=== PATIENT | male | born 1965 | race Caucasian/White ===

== ENCOUNTER 2017-09-08 09:40 | Emergency (ER) | payer MEDICAID, OTHER ==
[~2017-09-08] VITALS: Ht 177.8 cm; Wt 117.2 kg
[2017-09-08 09:46] VITALS: BP 124/87
[2017-09-08] MEDS ORDERED: KETOROLAC 30 MG/1 ML ONE (10:15)
[2017-09-08] MEDS ORDERED: BENAZEPRIL (10:30)
[2017-09-08] MEDS ORDERED: METF500T5 PO (10:30)
[2017-09-08] MEDS ORDERED: KETOROLAC 30 MG/1 ML IM ONE (10:30)
[2017-09-08] MEDS ORDERED: OMEP-110 PO (10:31)
== END 2017-09-08 12:22 | disposition home or self-care (01) ==
LOC: ED 11:19
DX: M54.5 Low back pain (principal); G89.29 Other chronic pain; M51.36 Other intervertebral disc degeneration, lumbar region; M54.16 Radiculopathy, lumbar region; I10 Essential (primary) hypertension; E11.9 Type 2 diabetes mellitus without complications; K21.9 Gastro-esophageal reflux disease without esophagitis
CPT/HCPCS: 72148; 99284